=== PATIENT | male | born 1990 | race Two or more races ===

== ENCOUNTER 2022-04-30 18:31 | Emergency (ER) | payer SELFPAY ==
[~2022-04-30] VITALS: Ht 172.7 cm; Wt 116.0 kg
[2022-04-30 19:31] VITALS: BP 138/91
[2022-04-30] MEDS ORDERED: IBUPROFEN 800 MG TAB PO ONE (20:15)
== END 2022-04-30 21:48 | disposition home or self-care (01) ==
LOC: ER 18:31
DX: U07.1 COVID-19 (principal)
CPT/HCPCS: 36415; 87426; 87804